=== PATIENT | female | born 1995 | race Caucasian/White ===

== ENCOUNTER 2016-11-08 11:03 | Emergency (ER) | payer SELFPAY ==
[2016-11-08 11:57] LABS: Bilirubin Negative (Negative); Blood, Urine Moderate (Negative); Glucose, Urine (Dipstick) Negative (Negative); Leukocyte Negative (Negative); Nitrite Negative (Negative); Protein, Urine (Dipstick) Negative (Neg-Trace); Specific Gravity, Urine 1.025 (1.005-1.030); Urobilinogen 0.2 mg/dL (0.2-1.0)
[2016-11-08 12:06] LABS: Bacteria/HPF Rare-Few HPF (None Seen); Clarity Hazy (Clear); RBC/HPF GREATER THAN 50-TNTC HPF (0-3); Squamous Epithelial 0-3 HPF (0-3); WBC/HPF None Seen HPF (0-3)
[2016-11-08 12:07] LABS: Pregnancy Test - Urine (BHCG) NEGATIVE (NEGATIVE); Pregu Control Background? CLEAR/WHITE (CLR/WHITE); Pregu Control Bar Appear? YES (CONTROL BAR); Specific Gravity 1.025 (1.002-1.036)
--- NOTE | 2016-11-08 12:43 | ERRECORD ---
[facility] EMERGENCY RECORD HPI VAGINAL BLEEDING CHIEF COMPLAINT: Patient presents for evaluation of vaginal bleeding. (12:03 LHOD) HISTORIAN: History provided by patient. (12:03 LHOD) LOCATION: VAGINAL. (12:05 LHOD) QUALITY: HEAVY MENSES WITH CRAMPING. (12:05 LHOD) SEVERITY: Maximum severity of pain rated as 3/10, Current severity of pain rated as 1/10. (12:06 LHOD) TIME COURSE: REPORTS SINCE END OF SEPTEMBER SHE HAS HAD HEAVY MENSTRUAL BLEEDING. FOR 2 1/2 WEEKS, OFF 4 DAYS, THEN RESTARTED 4 DAYS AGO. LAST SEXUALLY ACTIVE IN MAY. IS NOT ON HORMONES OR BCP, AND HAS NOT BEEN TO A MOTOR VEHICLE TECHNICIAN. (12:03 LHOD) ROS (12:06 LHOD) CONSTITUTIONAL: Historian denies fever. CARDIOVASCULAR: Historian denies chest pain. RESPIRATORY: Historian denies shortness of breath. GI: Historian reports abdominal pain, denies diarrhea, denies nausea, denies vomiting. INTERMITTENT SUPRAPUBIC CRAMPING. GENITOURINARY FEMALE: Historian denies dysuria, denies , reports vaginal bleeding. MUSCULOSKELETAL: Historian denies back pain, denies neck pain. SKIN: Historian denies rash. NEUROLOGIC: Historian denies headache. HEMO/LYMPHATIC: Historian denies easy bruising. NOTES: All systems reviewed, negative except as described above. PAST MEDICAL HISTORY MEDICAL HISTORY: Notes: VERIFIED 11-08-16, Notes: HYPOTHYROID. (11:23 JPER) FEMALE SURGICAL HISTORY: VERIFIED 11-08-16, Surgical history of cholecystectomy. (11:23 JPER) PSYCHIATRIC HISTORY: Notes: VERIFIED 11-08-16, Psychiatric history includes, depression, Psychiatric history includes previous inpatient psychiatric admissions, Date of last admission: 2007, Facility: [facility], Notes: ATTEMPTED SUICIDE. (11:23 JPER) SOCIAL HISTORY: Patient drinks socially, twice a month, Patient denies drug use, Patient currently uses tobacco, smokes cigarettes, chews tobacco, daily. (11:23 JPER) Social History includes NOT SEXUALLY ACTIVE SINCE 2015, Patient drinks socially, twice a month, Patient denies drug use, Patient currently uses tobacco, smokes cigarettes, chews tobacco, daily. (14:08 LHOD) NOTES: Nursing records reviewed, HX OF IRREGULAR MENSES, BUT HAS NOT SEEN MOTOR VEHICLE TECHNICIAN. (14:08 LHOD) KNOWN ALLERGIES No Known Allergies (Unconfirmed) &a-1R&a+25V*p+0X*x1497Y*c202B*c15G*c2P*p-0X&a-25V&a+1R Name: Daina Moses : 1995 F20 MedRec: [id number] AcctNum: [id number] Prepared: Sat Nov 11, 2016 11:02 by Interface Page 1 of 3 pMD [facility] EMERGENCY RECORD No Known Drug Allergies CURRENT MEDICATIONS (11:23 JPER) None VITAL SIGNS (11:18 JPER) VITAL SIGNS: BP: 156/80, Pulse: 74, Resp: 20, Temp: 98.3 (Oral), O2 sat: 98 on Room Air, Time: 11/08/2016 11:18. PHYSICAL EXAM (14:06 LHOD) CONSTITUTIONAL: Vital Signs Reviewed, Patient afebrile, Pulse normal, Blood pressure, hypertensive, Respiratory rate normal, Patient appears non toxic, Patient alert and oriented to person, place and time. NECK: Neck exam included findings of normal range of motion, Trachea midline. RESPIRATORY CHEST: Respiratory exam included findings of no respiratory distress, Breath sounds clear. CARDIOVASCULAR: Cardiovascular exam included findings of heart rate regular rate and rhythm. ABDOMEN FEMALE: Abdominal exam included findings of abdomen nontender, OBESITY MAKES DIFFICULT DISCERNING UTERINE ENLARGEMENT. GENITOURINARY FEMALE: External genitalia normal. PELVIC: Bimanual exam normal, no cervical motion tenderness, no adnexal mass, RETROVERTED UTERUS, W/O TENDERNESS OR PALPALBE ENLARGEMENT, Vaginal bleeding present, SMALL AMOUNT OF DARK BLOOD IN VAGINA WITHOUT CLOTS OR TISSUE. CLOSED CERVIX. NEURO: Neuro exam findings include patient oriented to person, place and time, Speech normal. SKIN: no rash, NO BRUISING. DOCTOR NOTES (Sat Nov 11, 2016 10:57 LHOD) TEXT: PT'S CHLAMYDIA CERVICAL CULTURE CAME BACK POSITIVE. RN SWEEPER CLEANER INDUSTRIAL, SIVA, WILL CONTACT PT AND I PRESCRIBED DOXYCYCLINE 100 MG BID (#20). WILL BE ADVISED TO HAVE PARTNER F/U FOR TREATMENT. PROBLEM LIST No recorded problems DIAGNOSIS (12:12 LHOD) FINAL: PRIMARY: Dysfunctional uterine bleeding (DUB). PRESCRIPTION (12:15 LHOD) Lo-Ovral (28): TABLET : 0.3 mg-30 mcg : ORAL : Quantity: 1 Unit: tab(s) Route: ORAL Schedule: As Needed Dispense: 1 May substitute. Refills: No Refills . NOTES: No Refills. &a-1R&a+25V*p+0X*g5619X*c202B*c15G*c2P*p-0X&a-25V&a+1R Name: Daina Moses : 1995 F20 MedRec: [id number] AcctNum: [id number] Prepared: Sat Nov 11, 2016 11:02 by Interface Page 2 of 3 pMD [facility] EMERGENCY RECORD DISPOSITION PATIENT: Disposition Type: Discharge, Disposition: *Discharge Home, Condition: Good. (12:12 LHOD) Patient left the department. (12:36 CJEF) Yancey: GRETTA=KARY Wong, Meagan MERRILLER=KARY Bello, Suad LHOD=MD Godfrey, Silvia &a-1R&a+25V*p+0X*p9611M*c202B*c15G*c2P*p-0X&a-25V&a+1R Name: Daina Moses : 1995 F20 MedRec: [id number] AcctNum: [id number] Prepared: Sat Nov 11, 2016 11:02 by Interface Page 3 of 3 pMD MTDD
[2016-11-08 12:46] LABS: Wet Prep Clue Cells Clue Cells Absent (None Seen); Wet Prep Trichomonas Trichomonas Absent (None Seen)
[2016-11-08 12:47] LABS: Wet Prep Pathologist Review Spermatozoa Absent (None Seen); Wet Prep Spermatozoa 2nd Revie Agree with result (None Seen)
--- NOTE | 2016-11-08 12:48 | PICIS ---
[facility] EMERGENCY RECORD TRIAGE (11:23 JPER) PATIENT: NAME: Daina Moses, AGE: 20, GENDER: female, : Sun1995, TIME OF GREET: SunNov 08, 2016 11:05, PREFERRED LANGUAGE: Yi, RACE: WHITE, ETHNICITY: Not or , FALL RISK: NO, ECODE BILLING MAP: [facility], SSN: [id number], Zip Code: [address], KG WEIGHT: [phone], PHONE: , , , PERSON ID: [id number], PCP: NO PCP. (11:23 JPER) COMPLAINT: MENSTRUAL CYCLE ISSUES. (11:23 JPER) ADMISSION: URGENCY: 3 Urgent, ADMISSION SOURCE: Home, TRANSPORT: Walk-in, BED: ED -04. (11:23 JPER) ASSESSMENT: Assessment: PT C/O VAGINAL BLEEDING X 3 DAYS; CRAMPS; HAD ABNORMAL ODOR AND DC PRIOR TO BLEEDING. (11:23 JPER) PAIN: Patient complains of pain described as, cramping, on a scale 0-10 patient rates pain as 2, Pain is constant, No aggravating factors, No relieving factors. (11:23 JPER) IMMUNIZATIONS: Flu vaccine not up to date, Tetanus immunization up to date, Pneumococcal vaccine not up to date. (11:23 JPER) SIRS SCORING: Heart Rate 55-109 (0), Temp range 96.8-101.1 (0), respiratory rate 12-24 (0), Mental Status altered: no (0). (11:23 JPER) TRIAGE SCREENING: Patient denies suicidal ideation, Patient denies presence of domestic violence. (11:23 JPER) LMP: Last menstrual period: 17. (11:23 JPER) PROVIDERS: TRIAGE NURSE: Suad Bello RN. (11:23 JPER) VITAL SIGNS: BP 156/80, Pulse 74, Resp 20, Temp 98.3, (Oral), O2 Sat 98, on Room Air, Time 11/08/2016 11:18. (11:18 JPER) PREVIOUS VISIT ALLERGIES: No Known Drug Allergies. (11:23 JPER) KNOWN ALLERGIES No Known Allergies (Unconfirmed) No Known Drug Allergies CURRENT MEDICATIONS (11:23 JPER) None VITAL SIGNS (11:18 JPER) VITAL SIGNS: BP: 156/80, Pulse: 74, Resp: 20, Temp: 98.3 (Oral), O2 sat: 98 on Room Air, Time: 11/08/2016 11:18. NURSING ASSESSMENT: GENITOURINARY (11:30 JPER) CONSTITUTIONAL: Patient arrives ambulatory, Gait steady, History obtained from patient, Patient appears comfortable, Patient cooperative, Patient alert, Oriented to person, place and time, Skin warm, Skin dry, Skin normal in color, Mucous membranes pink, Mucous membranes moist, Patient complains of vaginal bleeding. PAIN FEMALE: Pain exacerbated by nothing, Nothing has been tried to alleviate the pain, to the suprapubic region, &a-1R&a+25V*p+0X*e4710M*c202B*c15G*c2P*p-0X&a-25V&a+1R Name: AureliaDaina mcgregor Thao : 1995 F20 MedRec: [id number] AcctNum: [id number] Prepared: Sat Nov 11, 2016 11:02 by Interface Page 1 of 6 pMD [facility] EMERGENCY RECORD on a scale 0-10 patient rates pain as 2. GENITOURINARY FEMALE: Notes: deferred; ua obtained et sent to lab. ABDOMEN: Abdomen soft. NOTES: Emotional support needed and given. NURSING PROCEDURE: DISCHARGE NOTE (12:36 [facility]) DISCHARGE: Patient discharged to home, ambulating without assistance, driving self, unaccompanied, Summary of Care printed/ provided, Patient requested and was provided an electronic copy of Discharge Instructions, Transition record given to patient, Discharge instructions given to patient, Simple or moderate discharge teaching performed, Prescriptions given and instructions on side effects given, Medication reconciliation form given, Above person(s) verbalized understanding of discharge instructions and follow-up care, Patient treated and evaluated by physician. BELONGINGS: Belongings remain with patient. NOTES: Patient tolerated procedure well. SAFETY: Side rails up, Cart/Stretcher in lowest position, Family at bedside, Call light within reach, Hospital ID band on. ORDER DETAILS Order Name: GC/Chlamydia Profile by PCR, Status: Active, Time: 12:05 11/08/2016, User: LHOD, - Ordered for: MD Donahue Lefayne, - Entered by: MD Donahue Lefayne - SunNov 08, 2016 12:05, - Quantity: 1, Order Name: Test, Urine (BHCG), Status: Active, Time: 11:33 11/08/2016, User: EMMETT, - Ordered for: MD Donahue Lefayne, - Entered by: KARY Bello, SunNov 08, 2016 11:33, - Quantity: 1, Order Name: Urinalysis w/ Rflx Microscopic, Status: Active, Time: 11:33 11/08/2016, User: EMMETT, - Ordered for: MD Donahue Lefayne, - Entered by: KARY Bello, SunNov 08, 2016 11:33, - Quantity: 1, Order Name: VP3, Status: Active, Time: 12:05 11/08/2016, User: RYNE, - Ordered for: MD Donahue Lefayne, - Entered by: MD Donahue Lefayne - SunNov 08, 2016 12:05, - Quantity: 1, Order Name: Wet Prep, Status: Active, Time: 12:05 11/08/2016, User: RYNE, - Ordered for: MD Donahue Lefayne, - Entered by: MD Donahue Lefayne - SunNov 08, 2016 12:05, - Quantity: 1. HPI VAGINAL BLEEDING CHIEF COMPLAINT: Patient presents for evaluation of vaginal &a-1R&a+25V*p+0X*h4246Z*c202B*c15G*c2P*p-0X&a-25V&a+1R Name: Aurelia Daina D : 1995 F20 MedRec: [id number] AcctNum: [id number] Prepared: Sat Nov 11, 2016 11:02 by Interface Page 2 of 6 pMD [facility] EMERGENCY RECORD bleeding. (12:03 LHOD) HISTORIAN: History provided by patient. (12:03 LHOD) LOCATION: VAGINAL. (12:05 LHOD) QUALITY: HEAVY MENSES WITH CRAMPING. (12:05 LHOD) SEVERITY: Maximum severity of pain rated as 3/10, Current severity of pain rated as 1/10. (12:06 LHOD) TIME COURSE: REPORTS SINCE END OF SEPTEMBER SHE HAS HAD HEAVY MENSTRUAL BLEEDING. FOR 2 1/2 WEEKS, OFF 4 DAYS, THEN RESTARTED 4 DAYS AGO. LAST SEXUALLY ACTIVE IN MAY. IS NOT ON HORMONES OR BCP, AND HAS NOT BEEN TO A HOSPITALITY AIDE. (12:03 LHOD) ROS (12:06 LHOD) CONSTITUTIONAL: Historian denies fever. CARDIOVASCULAR: Historian denies chest pain. RESPIRATORY: Historian denies shortness of breath. GI: Historian reports abdominal pain, denies diarrhea, denies nausea, denies vomiting. INTERMITTENT SUPRAPUBIC CRAMPING. GENITOURINARY FEMALE: Historian denies dysuria, denies , reports vaginal bleeding. MUSCULOSKELETAL: Historian denies back pain, denies neck pain. SKIN: Historian denies rash. NEUROLOGIC: Historian denies headache. HEMO/LYMPHATIC: Historian denies easy bruising. NOTES: All systems reviewed, negative except as described above. PAST MEDICAL HISTORY MEDICAL HISTORY: Notes: VERIFIED 11-08-16, Notes: HYPOTHYROID. (11:23 JPER) FEMALE SURGICAL HISTORY: VERIFIED 11-08-16, Surgical history of cholecystectomy. (11:23 JPER) PSYCHIATRIC HISTORY: Notes: VERIFIED 11-08-16, Psychiatric history includes, depression, Psychiatric history includes previous inpatient psychiatric admissions, Date of last admission: 2007, Facility: [facility], Notes: ATTEMPTED SUICIDE. (11:23 JPER) SOCIAL HISTORY: Patient drinks socially, twice a month, Patient denies drug use, Patient currently uses tobacco, smokes cigarettes, chews tobacco, daily. (11:23 JPER) Social History includes NOT SEXUALLY ACTIVE SINCE 2015, Patient drinks socially, twice a month, Patient denies drug use, Patient currently uses tobacco, smokes cigarettes, chews tobacco, daily. (14:08 LHOD) NOTES: Nursing records reviewed, HX OF IRREGULAR MENSES, BUT HAS NOT SEEN HOSPITALITY AIDE. (14:08 LHOD) PHYSICAL EXAM (14:06 LHOD) CONSTITUTIONAL: Vital Signs Reviewed, Patient afebrile, Pulse normal, Blood pressure, hypertensive, Respiratory rate normal, Patient appears non toxic, Patient alert and oriented to &a-1R&a+25V*p+0X*n1218Y*c202B*c15G*c2P*p-0X&a-25V&a+1R Name: Daina Moses : 1995 F20 MedRec: [id number] AcctNum: [id number] Prepared: Sat Nov 11, 2016 11:02 by Interface Page 3 of 6 pMD [facility] EMERGENCY RECORD person, place and time. NECK: Neck exam included findings of normal range of motion, Trachea midline. RESPIRATORY CHEST: Respiratory exam included findings of no respiratory distress, Breath sounds clear. CARDIOVASCULAR: Cardiovascular exam included findings of heart rate regular rate and rhythm. ABDOMEN FEMALE: Abdominal exam included findings of abdomen nontender, OBESITY MAKES DIFFICULT DISCERNING UTERINE ENLARGEMENT. GENITOURINARY FEMALE: External genitalia normal. PELVIC: Bimanual exam normal, no cervical motion tenderness, no adnexal mass, RETROVERTED UTERUS, W/O TENDERNESS OR PALPALBE ENLARGEMENT, Vaginal bleeding present, SMALL AMOUNT OF DARK BLOOD IN VAGINA WITHOUT CLOTS OR TISSUE. CLOSED CERVIX. NEURO: Neuro exam findings include patient oriented to person, place and time, Speech normal. SKIN: no rash, NO BRUISING. LAB INTERPRETATION (14:10 LHOD) INTERPRETATION: I reviewed the lab results, Urinalysis abnormal, positive for erythrocytes, BLOOD FROM VAGINA CONTAMINATED URINE, Urine HCG negative. EVENTS TRANSFER: Triage to Emergency Main ED -04. (SunNov 08, 2016 11:23 JPER) Removed from Emergency Main ED -04. (12:36 [facility]) DOCTOR NOTES (Sat Nov 11, 2016 10:57 LHOD) TEXT: PT'S CHLAMYDIA CERVICAL CULTURE CAME BACK POSITIVE. RN DIRECTOR PERIOPERATIVE, CANDACE, WILL CONTACT PT AND I PRESCRIBED DOXYCYCLINE 100 MG BID (#20). WILL BE ADVISED TO HAVE PARTNER F/U FOR TREATMENT. PROBLEM LIST No recorded problems DIAGNOSIS (12:12 LHOD) FINAL: PRIMARY: Dysfunctional uterine bleeding (DUB). DISPOSITION PATIENT: Disposition Type: Discharge, Disposition: *Discharge Home, Condition: Good. (12:12 LHOD) Patient left the department. (12:36 CJ) INSTRUCTION (12:17 LHOD) DISCHARGE: DYSFUNCTIONAL UTERINE BLEEDING. FOLLOWUP: Follow up with Specialist in 5 days. &a-1R&a+25V*p+0X*f5697W*c202B*c15G*c2P*p-0X&a-25V&a+1R Name: Daina Moses : 1995 F20 MedRec: [id number] AcctNum: [id number] Prepared: Sat Nov 11, 2016 11:02 by Interface Page 4 of 6 pMD [facility] EMERGENCY RECORD SPECIAL: Tylenol or Advil for Pain DRINK PLENTY OF FLUIDS. FOLLOW UP WITH GYNECOLOGY SOON POSSIBLE. *RETURN IF WORSE. PRESCRIPTION (12:15 LHOD) Lo-Ovral (28): TABLET : 0.3 mg-30 mcg : ORAL : Quantity: 1 Unit: tab(s) Route: ORAL Schedule: As Needed Dispense: 1 May substitute. Refills: No Refills . NOTES: No Refills. IMAGING (12:37 [facility]) *DISCHARGE INSTRUCTIONS RECEIPT: Image captured from scanner. *SUPPLY CHARGE SHEET: Image captured from scanner. ADMIN DIGITAL SIGNATURE: MD Donahue Lefayne. (14:11 LHOD) MD Donahue Lefayne. (Sat Nov 11, 2016 10:58 LHOD) RESULTS LABORATORY: Urine Microscopic Collection DT: SunNov 08, 2016 11:57, *RBC/HPF GREATER THAN 50-TNTC HPF, * - H , Range (0-3), WBC/HPF None Seen HPF, Range (0-3), Squamous Epithelial 0-3 HPF, Range (0-3), Bacteria/HPF Rare-Few HPF, Range (None Seen). (12:08 LHOD) Urinalysis w/ Rflx Microscopic Collection DT: SunNov 08, 2016 11:57, Color Yellow , Range (Yellow), Clarity Hazy , Range (Clear), Specific [place], Urine 1.025 , Range (1.005-1.030), pH, Urine 5.0 , Range (5.0-9.0), Leukocyte Negative , Range (Negative), Nitrite Negative , Range (Negative), Protein, Urine (Dipstick) Negative mg/dL, Range (Neg-Trace), Glucose, Urine (Dipstick) Negative mg/dL, Range (Negative), Ketone, Urine Negative mg/dL, Range (Negative), Urobilinogen 0.2 mg/dL, Range (0.2-1.0), Bilirubin Negative , Range (Negative), *Blood, Urine Moderate - H , Range (Negative). (12:08 LHOD) Test, Urine (BHCG) Collection DT: SunNov 08, 2016 11:57, Test - Urine (BHCG) NEGATIVE , Range (NEGATIVE), Method of sensitivity- Indeterminant: results should be repeated, after 48 hours. Positive: results may be detected as early as 4-5 days before a first missed menses. Elimination of BHCG-, &a-1R&a+25V*p+0X*z2068O*c202B*c15G*c2P*p-0X&a-25V&a+1R Name: Daina Moses : 1995 F20 MedRec: [id number] AcctNum: [id number] Prepared: [facility] Nov 11, 2016 11:02 by Interface Page 5 of 6 pMD [facility] EMERGENCY RECORD Elimination following first trimester D&C: 29-44 Days , Elimination following term : 8-24 Days , Specific [place] 1.025 , Range (1.002-1.036), A dilute urine specimen may, not contain healthcare sales representative levels of hCG. If is still, suspected, a first morning urine specimen OR a random blood specimen should, be obtained from the patient 48-72 hours later and re-tested. , . (12:08 LHOD) GC/Chlamydia Profile by PCR Collection DT: SunNov 08, 2016 12:38, GC by PCR Not Detected , Range (NotDetected), *Chlamydia by PCR DETECTED - H , Range (NotDetected). (SunNov 11, 2016 10:49 LWAL) MICROBIOLOGY: Vaginitis Panel 3 by DNA Probe: [id number] Collection DT: SunNov 08, 2016 12:38, See comment below , @ ER ROOM#: ED-04 Source: Cervix Spec Desc: , Elyssa: Negative , *Gardnerella: Positive - H , Trichomonas: Negative . ([facility] Nov 11, 2016 10:49 LWAL) LABORATORY: Wet Prep Collection DT: SunNov 08, 2016 12:38, Wet Prep Trichomonas Trichomonas Absent , Range (None Seen), Wet Prep Clue Cells Clue Cells Absent , Range (None Seen), Wet Prep Budding Yeast BudYeas/Hyph Absent , Range (None Seen), Wet Prep Spermatozoa Spermatozoa Absent , Range (None Seen), Wet Prep Pathologist Review Spermatozoa Absent , Range (None Seen), Wet Prep Source Vaginal , Sexual Assault Suspected No . (Sat Nov 11, 2016 10:49 LWAL) Yancey: CJEF=KARY Wong, Meagan JPER=KARY Bello, Suad LHOD=MD Godfrey, Silvia LWAL=KARY Wu, Candace &a-1R&a+25V*p+0X*b2593C*c202B*c15G*c2P*p-0X&a-25V&a+1R Name: Daina Moses : 1995 F20 MedRec: [id number] AcctNum: [id number] Prepared: [facility] Nov 11, 2016 11:02 by Interface Page 6 of 6 pMD MTDD
[2016-11-09 18:40] LABS: Chlamydia by PCR DETECTED (NotDetected); GC by PCR Not Detected (NotDetected)
== END 2016-11-08 12:37 | disposition home or self-care (01) ==
LOC: MADERS 11:03
DX: N93.8 Other specified abnormal uterine and vaginal bleeding (principal); F17.220 Nicotine dependence, chewing tobacco, uncomplicated
CPT/HCPCS: 81003; 81015; 81025; 87210; 87480; 87491; 87510; 87591; 87660; 99284

== ENCOUNTER 2017-05-16 10:28 | Emergency (ER) | payer SELFPAY | END 2017-05-16 11:27 | disposition home or self-care (01) | LOC: MADERS 10:28 | DX: L55.1 Sunburn of second degree (principal); F32.9 Major depressive disorder, single episode, unspecified; F17.210 Nicotine dependence, cigarettes, uncomplicated; F17.220 Nicotine dependence, chewing tobacco, uncomplicated | CPT/HCPCS: 99282 ==

== ENCOUNTER 2017-07-20 07:56 | Emergency (ER) | payer SELFPAY ==
[2017-07-20] MEDS ORDERED: AMOXicillin 250 MG CAP ONE (08:22)
[2017-07-20] MEDS ORDERED: Ondansetron ODT 4 MG TAB ONE (08:22)
[2017-07-20] MEDS ORDERED: Benzonatate 100 MG CAP ONE (08:22)
== END 2017-07-20 08:25 | disposition home or self-care (01) ==
LOC: MADERS 07:56
DX: J20.9 Acute bronchitis, unspecified (principal); E03.9 Hypothyroidism, unspecified; F32.9 Major depressive disorder, single episode, unspecified; F17.210 Nicotine dependence, cigarettes, uncomplicated
CPT/HCPCS: 99283; Q0162

== ENCOUNTER 2017-12-04 08:21 | Emergency (ER) | payer SELFPAY ==
[2017-12-04] MEDS ORDERED: Ondansetron ODT 4 MG TAB ONE (08:41)
[2017-12-04 09:32] LABS: Bilirubin Negative (Negative); Blood, Urine Large (Negative); Clarity Clear (Clear); Glucose, Urine (Dipstick) Negative (Negative); Leukocyte Negative (Negative); Nitrite Negative (Negative); Protein, Urine (Dipstick) Negative (Neg-Trace); Specific Gravity, Urine 1.025 (1.005-1.030); Urobilinogen 0.2 mg/dL (0.2-1.0); pH, Urine 5.5 (5.0-9.0)
[2017-12-04 09:43] LABS: Pregnancy Test - Urine (BHCG) Negative (Negative); Pregu Control Background? CLEAR/WHITE (CLR/WHITE); Pregu Control Bar Appear? YES (CONTROL BAR); Specific Gravity 1.025 (1.002-1.036)
[2017-12-04 09:44] LABS: Bacteria/HPF Rare-Few HPF (None Seen); RBC/HPF GREATER THAN 50-TNTC HPF (0-3); WBC/HPF 0-3 HPF (0-3)
== END 2017-12-04 10:15 | disposition home or self-care (01) ==
LOC: MADERS 08:21
DX: K52.9 Noninfective gastroenteritis and colitis, unspecified (principal); J06.9 Acute upper respiratory infection, unspecified; E03.9 Hypothyroidism, unspecified; F32.9 Major depressive disorder, single episode, unspecified; F17.210 Nicotine dependence, cigarettes, uncomplicated; F17.220 Nicotine dependence, chewing tobacco, uncomplicated
CPT/HCPCS: 81003; 81015; 81025; 99284; Q0162

== ENCOUNTER 2019-10-25 19:08 | Emergency (ER) | payer SELFPAY ==
[2019-10-25] MEDS ORDERED: Ibuprofen 800 MG TAB ONE (19:41)
[2019-10-25] MEDS ORDERED: Azithromycin 250 MG TAB ONE (19:41)
[2019-10-25] MEDS ORDERED: cefTRIAXone\\ROCEPHIN 1 GM VIAL ONE (19:42)
[2019-10-25] MEDS ORDERED: Lidocaine 1% 20 ML MDV ONE (19:42)
== END 2019-10-25 20:15 | disposition home or self-care (01) ==
LOC: MADERS 19:08
DX: J02.0 Streptococcal pharyngitis (principal); E03.9 Hypothyroidism, unspecified; F32.9 Major depressive disorder, single episode, unspecified; F17.210 Nicotine dependence, cigarettes, uncomplicated
CPT/HCPCS: 96372; 99282; J0696; J2001

== ENCOUNTER 2021-05-11 23:23 | Emergency (ER) | payer OTHER, SELFPAY ==
[~2021-05-11 23:23] MED LIST: Iopamidol 370 76% 100 ML VIAL ONE
[2021-05-12] MEDS ORDERED: Metoclopramide HCl 10 MG/2 ML VIAL ONE (00:14)
[2021-05-12] MEDS ORDERED: Sodium Chloride 0.9% 1,000 ML ONE (00:14)
[2021-05-12] MEDS ORDERED: Ketorolac Tromethamine 30 MG/ML VIAL ONE (00:14)
[2021-05-12 00:31] LABS: Bilirubin Large (Negative); Blood, Urine Negative (Negative); Clarity Cloudy (Clear); Glucose, Urine (Dipstick) Negative (Negative); Ketone, Urine Trace mg/dL (Negative); Leukocyte Negative (Negative); Nitrite Negative (Negative); Protein, Urine (Dipstick) 30 mg/dL (Neg-Trace); pH, Urine 5.5 (5.0-9.0)
[2021-05-12 00:35] LABS: RBC/HPF 0-3 HPF (0-3)
[2021-05-12 00:36] LABS: Bacteria/HPF 2+ HPF (None Seen); Mucous/LPF 3+ LPF (<2+)
[2021-05-12 00:56] LABS: #Basophils 0.1 thou/uL (0.0-0.2); #Eosinphils 0.2 thou/uL (0.0-0.7); #Lymphocytes 3.6 thou/uL (1.20-3.40); #Monocytes 0.6 thou/uL (0.11-0.59); #Neutrophils 4.7 thou/uL (1.40-6.50); %Basophils 0.7 % (0.0-1.0); %Eosinophils 1.8 % (0.0-10.0); %Lymphocytes 39.2 % (21.0-51.0); %Monocytes 6.8 % (0.0-10.0); %Neutrophils 51.6 % (42.0-75.0); Hemoglobin 14.6 g/dL (12.0-16.0); Mean Corpuscular HGB CONC 32.6 g/dL (32.0-36.0); Mean Corpuscular Hemoglobin 28.9 pg (27.0-31.0); Mean Corpuscular Volume 88.6 fL (78.0-98.0); Mean Platelet Volume 7.6 fL (7.4-10.4); Platelet Count 324 thou/uL (130-400); RBC Distribution Width 11.5 % (11.5-14.5); Red Blood Cell (RBC) Count 5.05 mill/uL (4.20-5.40); White Blood Cell (WBC) Count 9.1 thou/uL (4.8-10.8)
[2021-05-12 01:08] LABS: BHCG - Serum Negative (NEGATIVE); Pregs Control Background? CLEAR/WHITE (CLR/WHITE); Pregs Control Bar Appear? YES (CONTROL BAR)
[2021-05-12 01:16] LABS: ALT (SGPT) 390 U/L (8-55); AST (SGOT) 179 U/L (5-34); Albumin 4.3 g/dL (3.5-5.0); Alkaline Phosphatase 194 U/L (40-110); Anion Gap 16 mmol/L (10-20); BUN (Urea Nitrogen) 6 mg/dL (7.0-18.7); Bilirubin, Total 3.4 mg/dL (0.2-1.2); CK (CPK) 29 U/L (29-168); Calc. Creatinine Clearance 0 mL/min (70-130); Carbon Dioxide 28 mmol/L (22-29); Chloride 100 mmol/L (98-107); Globulin 3.8 g/dL (2.4-3.5); Glucose 113 mg/dL (70-105); Potassium 3.9 mmol/L (3.5-5.1); Protein, Total 8.1 g/dL (6.0-8.3); Sodium 140 mmol/L (136-145)
[2021-05-12] MEDS ORDERED: Fentanyl 100 MCG/2 ML VIAL ONE (01:42)
[2021-05-12] MEDS ORDERED: Piperacillin/Tazobactam 3.375 GM VIAL ONE (01:42)
[2021-05-12] MEDS ORDERED: Sodium Chloride 0.9% 100 ML ONE (01:43)
[2021-05-12] MEDS ORDERED: Ondansetron PF 4 MG/2 ML Vial ONE (02:57)
== END 2021-05-12 04:04 | disposition short-term general hospital (02) ==
LOC: MADERS 23:23
DX: K75.9 Inflammatory liver disease, unspecified (principal); I10 Essential (primary) hypertension; E03.9 Hypothyroidism, unspecified; F17.210 Nicotine dependence, cigarettes, uncomplicated
CPT/HCPCS: 70450; 71045; 74177; 80053; 81003; 81015; 82550; 83605; 83690; 84703; 85025; 87804; 87807; 96365; 96367; 96375; J1885; J2405; J2543; J2765; J3010; J3490; J7050; Q9967

== ENCOUNTER 2023-10-04 17:39 | Emergency (ER) | payer OTHER ==
[2023-10-04 18:15] LABS: Bilirubin Small (Negative); Blood, Urine Negative (Negative); Clarity Slightly Cloudy (Clear); Glucose, Urine (Dipstick) Negative (Negative); Ketone, Urine Trace mg/dL (Negative); Leukocyte Small (Negative); Nitrite Negative (Negative); Protein, Urine (Dipstick) 30 mg/dL (Neg-Trace); Urobilinogen 0.2 mg/dL (Less than 2); pH, Urine 5.5 (5.0-9.0)
[2023-10-04 18:18] LABS: Pregnancy Test - Urine (BHCG) Negative (Negative); Pregu Control Background? CLEAR/WHITE (CLR/WHITE); Pregu Control Bar Appear? YES (CONTROL BAR); Specific Gravity 1.028 (1.002-1.036)
[2023-10-04 18:19] LABS: CAUTI Indications for Culture Pelvic or flank pain; Specific Gravity, Urine 1.028 (1.002-1.036)
[2023-10-04 18:21] LABS: Bacteria/HPF 3+ HPF (None Seen); WBC/HPF 21-50 HPF (0-3)
[2023-10-04] MEDS ORDERED: Doxycycline 100 MG CAP ONE (20:47)
[2023-10-04] MEDS ORDERED: metroNIDAZOLE 250 MG TAB ONE (20:47)
[2023-10-04] MEDS ORDERED: cefTRIAXone (ROCEPHIN) 500 MG VIAL ONE (20:48)
[2023-10-04] MEDS ORDERED: Lidocaine 1% PF 5 ML VIAL ONE (20:50)
[2023-10-04] MEDS ORDERED: Fluconazole 100 MG TAB ONE (20:50)
[2023-10-04 21:12] LABS: Bilirubin Negative (Negative); Blood, Urine Negative (Negative); Glucose, Urine (Dipstick) Negative (Negative); Ketone, Urine Negative (Negative); Leukocyte Trace (Negative); Nitrite Negative (Negative); Protein, Urine (Dipstick) Negative (Neg-Trace); Specific Gravity, Urine 1.026 (1.002-1.036); Urobilinogen 0.2 mg/dL (Less than 2); pH, Urine 5.5 (5.0-9.0)
[2023-10-04 21:15] LABS: CAUTI Indications for Culture Dysuria,urgency,freq; Clarity Slightly Cloudy (Clear); Mucous/LPF 2+ LPF (<2+)
[2023-10-04 21:16] LABS: RBC/HPF 0-3 HPF (0-3)
[2023-10-04 21:17] LABS: Urine Culture Reflex Yes Yes
[2023-10-05 17:04] LABS: Chlamydia by PCR, Vaginal Swab Not Detected (NotDetected); GC by PCR, Vaginal Swab Not Detected (NotDetected); Tric.vaginalis PCR,Vaginal Sw DETECTED (NotDetected)
== END 2023-10-04 21:29 | disposition home or self-care (01) ==
LOC: MADERS 17:39
DX: B37.31 Acute candidiasis of vulva and vagina (principal); N73.9 Female pelvic inflammatory disease, unspecified; I10 Essential (primary) hypertension; Z79.899 Other long term (current) drug therapy
CPT/HCPCS: 81001; 81025; 87077; 87086; 87186; 87480; 87491; 87510; 87591; 87660; 87661; 96372; 99283; J0696